=== PATIENT | female | born 1960 | race Caucasian/White ===

== ENCOUNTER 2018-06-10 08:17 | Emergency (ER) | payer OTHER ==
[2018-06-10 08:21] VITALS: BP 121/62; PULSE 78; TEMP 98; BMI 20.3
[2018-06-10] MEDS ORDERED: ACETAMINOPHEN 500 MG TABLET (FP) PO ONE (09:11)
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
[2018-06-10] MEDS ORDERED: ACETAMINOPHEN 500 MG TABLET (FP) ONE (09:16)
== END 2018-06-10 09:33 | disposition home or self-care (01) ==
LOC: JERFT 08:17
DX: S29.012A Strain of muscle and tendon of back wall of thorax, initial encounter (principal); S40.012A Contusion of left shoulder, initial encounter; W18.09XA Striking against other object with subsequent fall, initial encounter; Y93.89 Activity, other specified; Y92.238 Other place in hospital as the place of occurrence of the external cause; Y99.0 Civilian activity done for income or pay
CPT/HCPCS: 99281-25